=== PATIENT | female | born 1980 | race African-American/Black ===

== ENCOUNTER 2017-08-13 07:10 | Day surgery (SDC) | payer SELFPAY ==
[~2017-08-13] VITALS: Ht 152.4 cm; Wt 77.1 kg
[~2017-08-13 07:10] MED LIST: ADULT MULTIVI200 MCG PO; CLINDAMYCIN HC300 MG PO; FEROSUL325 MG PO; GLUCOPHAGE XR750 MG PO; TYLENOL SINUS1 EA16 PO; ULTRAM50 MG PO
[2017-08-13 08:00] VITALS: BP 125/76
[2017-08-13 15:13] VITALS: BP 114/76
[2017-08-13 19:00] VITALS: BP 112/66
[2017-08-13 22:40] VITALS: BP 115/66
[2017-08-14 03:37] VITALS: BP 117/57
[2017-08-14 06:58] LABS: BASOPHIL (%) 0 % (0-1); EOSINOPHIL (%) 0.2 % (0-5); IMMATURE GRANULOCYTE (%) 0.3 % (0.0-0.7); LYMPHOCYTE (%) 19.2 % (15-42); LYMPHOCYTE COUNT 1.3 K/uL (1.0-2.8); MCH 27.2 PG (29.0-34.0); MCHC 31.9 G/DL (30.0-36.0); MCV 85.4 FL (83-99); MONOCYTE (%) 10.5 % (3-12); MONOCYTE COUNT 0.7 K/uL (0-0.8); NEUTROPHIL (%) 69.8 % (45-76); NEUTROPHIL COUNT 4.6 K/uL (1.8-6.4); PLATELET COUNT 285 K/uL (156-360); RBC DIS.WIDTH-SD 43.2 % (39-53); WHITE BLOOD COUNT 6.7 K/uL (4.1-10.2)
[2017-08-14 07:04] LABS: HEMOGLOBIN 6.7 G/DL (11.9-15.5); RED BLOOD COUNT 2.46 M/uL (3.80-5.20)
[2017-08-14 07:13] LABS: CHLORIDE 106 MEQ/L (99-109); CREATININE 0.6 MG/DL (0.6-1.3); GFR ESTIMATE (CALCULATED) > 59 mL/min/; GLUCOSE 90 mg/dL (70-99); POTASSIUM 3.6 MEQ/L (3.7-5.4); SODIUM 142 MEQ/L (136-147); UREA NITROGEN (BUN) 4 mg/dL (9-23)
[2017-08-14 07:20] VITALS: BP 143/65
[2017-08-14] MEDS ORDERED: MOTRIN600 MG PO (08:22)
[2017-08-14] MEDS ORDERED: ENDOCET 5-3251 EACH PO (08:22)
== END 2017-08-14 10:24 | disposition home or self-care (01) ==
LOC: SDC 07:10 → 2SOUTH 10:39 → EDSTATUS 10:44 → 2SOUTH 10:44 → SDC 10:44 → 2SOUTH 11:52 → ENRESERV 11:54 → EDSTATUS 12:10 → 2SOUTH 12:11 → ENRESERV 13:33 → SDC 14:32 → ENRESERV 14:47 → 2EAST 15:10 → SDC 15:21 → 2EAST 08-14 10:24
PROVIDERS: Obstetrics & Gynecology
DX: N93.9 Abnormal uterine and vaginal bleeding, unspecified (principal); D62 Acute posthemorrhagic anemia; N94.6 Dysmenorrhea, unspecified; E11.9 Type 2 diabetes mellitus without complications; D50.9 Iron deficiency anemia, unspecified; Z86.14 Personal history of Methicillin resistant Staphylococcus aureus infection; E66.9 Obesity, unspecified; Z68.32 Body mass index [BMI] 32.0-32.9, adult; Z79.84 Long term (current) use of oral hypoglycemic drugs; Z88.8 Allergy status to other drugs, medicaments and biological substances; Z91.09 Other allergy status, other than to drugs and biological substances
CPT/HCPCS: 80048; 82948; 85025; 87641; 88307; 93005; G0378; J0690; J1100; J1170; J1815; J1885; J2250; J2405; J3010; J7120

== ENCOUNTER 2017-08-26 19:40 | Inpatient (IN) | payer OTHER ==
[~2017-08-26] VITALS: Ht 160 cm; Wt 82.6 kg
[~2017-08-26 19:40] MED LIST changes: +ENDOCET 5-3251 EACH PO; +MOTRIN600 MG PO
[2017-08-26] MEDS ORDERED: FERROUS SULFAT325 MG PO (20:22)
[2017-08-26] MEDS ORDERED: MOTRIN400 MG PO (20:23)
[2017-08-26 20:59] LABS: MCH 27.1 PG (29.0-34.0); MCHC 31.4 G/DL (30.0-36.0); MCV 86.2 FL (83-99); RBC DIS.WIDTH-CV 14.4 % (11.8-14.6); RBC DIS.WIDTH-SD 45.4 % (39-53); WHITE BLOOD COUNT 6.2 K/uL (4.1-10.2)
[2017-08-26 21:04] LABS: ALBUMIN 3.9 g/dL (3.2-4.8); CHLORIDE 104 mEq/L (99-109); POTASSIUM 3.6 mEq/L (3.7-5.4); SODIUM 136 mEq/L (136-147)
[2017-08-26 21:06] LABS: GLUCOSE 208 mg/dL (70-99); TOTAL PROTEIN 7.6 g/dL (6.4-8.3)
[2017-08-26 21:08] LABS: TOTAL BILIRUBIN 2.1 mg/dL (0.0-1.0)
[2017-08-26 21:10] LABS: ALKALINE PHOSPHATASE 67 IU/L (3-129); CREATININE 1.4 mg/dL (0.6-1.3); GFR ESTIMATE (CALCULATED) 54 mL/min/
[2017-08-26 21:11] LABS: AST (GOT) 11 IU/L (2-34); UREA NITROGEN (BUN) 10 mg/dL (9-23)
[2017-08-26 21:13] LABS: ALT (GPT) 8 IU/L (3-49); LIPASE 8 U/L (1.0-51.0)
[2017-08-26 21:41] LABS: HEMOGLOBIN 8.8 G/DL (11.9-15.5); RED BLOOD COUNT 3.25 M/uL (3.80-5.20)
[2017-08-26 21:42] LABS: PLATELET COUNT 440 K/uL (156-360)
[2017-08-26 22:09] LABS: ABS NEUTROPHIL COUNT 5.7; ANISOCYTOSIS 1+; BAND NEUTROPHILS 28.7 % (0-8.0); EOSINOPHIL ABS CT 0; LYMPHOCYTES 2.6 % (15.0-45.0); MACROCYTES 1+; METAMYELOCYTES 2.6 %; MICROCYTOSIS 1+; MONOCYTES 1.7 % (0-9.0); MYELOCYTES 0.9 %; PLAT.SUFFICIENCY INCREASED; PLATELET CLUMPS PRESENT - PLATELET COUNT APPEARS INCREASED; POLYCHROMASIA 1+; SEG.NEUTROPHILS 63.5 % (46.0-76.0)
[2017-08-27] VITALS (10 sets, daily range): BP systolic 97–115; BP diastolic 69–78
[2017-08-27 00:16] LABS: APPEARANCE SL.HAZY ((CLEAR)); BILIRUBIN NEGATIVE; BLOOD SMALL; COLOR YELLOW ((YELLOW)); GLUCOSE (STRIP) NEGATIVE; KETONES NEGATIVE; LEUKOCYTES TRACE; NITRITE NEGATIVE; PROTEIN (STRIP) 30; UROBILINOGEN 0.2 MG/DL (0.2-1.0)
[2017-08-27 00:17] LABS: HEMATOCRIT 23.4 % (36.0-46.0); HEMOGLOBIN 7.2 G/DL (11.9-15.5); MCH 26.8 PG (29.0-34.0); MCHC 30.8 G/DL (30.0-36.0); PLATELET COUNT 347 K/uL (156-360); RBC DIS.WIDTH-CV 14.6 % (11.8-14.6); RED BLOOD COUNT 2.69 M/uL (3.80-5.20); WHITE BLOOD COUNT 4.7 K/uL (4.1-10.2)
[2017-08-27 00:21] LABS: BACTERIA RARE /HPF; EPITHELIAL CELLS 1+ /HPF; MUCUS NONE SEEN /LPF; UCUL ADDED? YES; WHITE BLOOD CELLS 15-20 /HPF (0-5)
[2017-08-27 00:24] LABS: ALBUMIN 3.2 g/dL (3.2-4.8); CHLORIDE 107 mEq/L (99-109); POTASSIUM 3.4 mEq/L (3.7-5.4); SODIUM 137 mEq/L (136-147)
[2017-08-27 00:27] LABS: GLUCOSE 218 mg/dL (70-99)
[2017-08-27 00:29] LABS: TOTAL BILIRUBIN 1.8 mg/dL (0.0-1.0)
[2017-08-27 00:30] LABS: ALKALINE PHOSPHATASE 49 IU/L (3-129); CREATININE 1.1 mg/dL (0.6-1.3); GFR ESTIMATE (CALCULATED) > 59 mL/min/; TOTAL PROTEIN 5.4 g/dL (6.4-8.3)
[2017-08-27 00:31] LABS: UREA NITROGEN (BUN) 10 mg/dL (9-23)
[2017-08-27 00:32] LABS: AST (GOT) 11 IU/L (2-34)
[2017-08-27 00:33] LABS: ALT (GPT) 6 IU/L (3-49)
[2017-08-27 01:35] LABS: ABS NEUTROPHIL COUNT 3.9; ANISOCYTOSIS 1+; BAND NEUTROPHILS 14.9 % (0-8.0); BURR CELLS 1+; EOSINOPHIL ABS CT 0; HELMET CELLS 1+; HEMATOLOGY COMMENT 1 SN; HYPOCHROMASIA 3+; LYMPHOCYTES 9.6 % (15.0-45.0); METAMYELOCYTES 4.4 %; MICROCYTOSIS 1+; MONOCYTES 1.8 % (0-9.0); MYELOCYTES 0.9 %; PLAT.SUFFICIENCY ADEQUATE; POIKILOCYTOSIS 1+; POLYCHROMASIA 1+; SEG.NEUTROPHILS 68.4 % (46.0-76.0); TEAR DROP CELLS 1+
[2017-08-27 10:20] LABS: HEMOGLOBIN 7.4 G/DL (11.9-15.5); MCH 27.1 PG (29.0-34.0); MCHC 30.8 G/DL (30.0-36.0); MCV 87.9 FL (83-99); PLATELET COUNT 344 K/uL (156-360); RBC DIS.WIDTH-CV 14.8 % (11.8-14.6); RBC DIS.WIDTH-SD 47.8 % (39-53); RED BLOOD COUNT 2.73 M/uL (3.80-5.20)
[2017-08-27 10:36] LABS: ABS NEUTROPHIL COUNT 7.8; EOSINOPHIL ABS CT 0; HYPOCHROMASIA 2+; LYMPHOCYTES 2.6 % (15.0-45.0); OVALOCYTES 1+; PLAT.SUFFICIENCY ADEQUATE; POIKILOCYTOSIS 1+; POLYCHROMASIA 1+; SEG.NEUTROPHILS 49.6 % (46.0-76.0)
[2017-08-27 10:39] LABS: ALBUMIN 3.2 G/DL (3.2-4.8); ALKALINE PHOSPHATASE 40 IU/L (3-129); ALT (GPT) 7 IU/L (3-49); AST (GOT) 11 IU/L (2-34); CHLORIDE 113 MEQ/L (99-109); CREATININE 0.7 MG/DL (0.6-1.3); GFR ESTIMATE (CALCULATED) > 59 mL/min/; GLUCOSE 192 mg/dL (70-99); POTASSIUM 3.9 MEQ/L (3.7-5.4); SODIUM 141 MEQ/L (136-147); TOTAL BILIRUBIN 1.2 MG/DL (0.0-1.0); TOTAL PROTEIN 6.2 G/DL (6.4-8.3); UREA NITROGEN (BUN) 8 mg/dL (9-23)
[2017-08-27 10:41] LABS: BAND NEUTROPHILS 47.8 % (0-8.0)
[2017-08-28] VITALS (19 sets, daily range): BP systolic 100–140; BP diastolic 58–104
[2017-08-28 06:03] LABS: HEMATOCRIT 22.1 % (36.0-46.0); HEMOGLOBIN 6.7 G/DL (11.9-15.5); MCH 26.6 PG (29.0-34.0); MCHC 30.3 G/DL (30.0-36.0); MCV 87.7 FL (83-99); PLATELET COUNT 348 K/uL (156-360); RBC DIS.WIDTH-CV 15.6 % (11.8-14.6); RBC DIS.WIDTH-SD 50.7 % (39-53); RED BLOOD COUNT 2.52 M/uL (3.80-5.20); WHITE BLOOD COUNT 10.9 K/uL (4.1-10.2)
[2017-08-28 09:26] LABS: CHLORIDE 109 MEQ/L (99-109); CREATININE 0.7 MG/DL (0.6-1.3); GFR ESTIMATE (CALCULATED) > 59 mL/min/; GLUCOSE 132 mg/dL (70-99); SODIUM 138 MEQ/L (136-147); UREA NITROGEN (BUN) 6 mg/dL (9-23)
[2017-08-28 09:27] LABS: POTASSIUM 3.1 MEQ/L (3.7-5.4)
[2017-08-28 09:35] LABS: THYROTROPIN (TSH) 2.8 MIU/L (0.4-5.5)
[2017-08-28 18:01] LABS: CHLORIDE 106 MEQ/L (99-109); GFR ESTIMATE (CALCULATED) 43 mL/min/; GLUCOSE 140 mg/dL (70-99); POTASSIUM 3.3 MEQ/L (3.7-5.4); SODIUM 136 MEQ/L (136-147); UREA NITROGEN (BUN) 11 mg/dL (9-23)
[2017-08-28 18:05] LABS: CREATININE 1.7 MG/DL (0.6-1.3)
[2017-08-28 18:21] LABS: HEMATOCRIT 28.3 % (36.0-46.0); MCH 26.9 PG (29.0-34.0); MCHC 31.4 G/DL (30.0-36.0); MCV 85.5 FL (83-99); PLATELET COUNT 361 K/uL (156-360); RBC DIS.WIDTH-CV 15.4 % (11.8-14.6); RBC DIS.WIDTH-SD 47.8 % (39-53); WHITE BLOOD COUNT 15.5 K/uL (4.1-10.2)
[2017-08-28 18:51] LABS: HEMOGLOBIN 8.9 G/DL (11.9-15.5); RED BLOOD COUNT 3.31 M/uL (3.80-5.20)
[2017-08-29] VITALS (16 sets, daily range): BP systolic 0–138; BP diastolic 0–98
[2017-08-29 05:40] LABS: HEMATOCRIT 25.1 % (36.0-46.0); HEMOGLOBIN 7.9 G/DL (11.9-15.5); MCHC 31.5 G/DL (30.0-36.0); MCV 85.7 FL (83-99); PLATELET COUNT 336 K/uL (156-360); RBC DIS.WIDTH-CV 15.9 % (11.8-14.6); RBC DIS.WIDTH-SD 49.5 % (39-53); RED BLOOD COUNT 2.93 M/uL (3.80-5.20); WHITE BLOOD COUNT 14.8 K/uL (4.1-10.2)
[2017-08-29 06:10] LABS: CHLORIDE 114 MEQ/L (99-109); GFR ESTIMATE (CALCULATED) 36 mL/min/; GLUCOSE 150 mg/dL (70-99); SODIUM 141 MEQ/L (136-147); UREA NITROGEN (BUN) 14 mg/dL (9-23)
[2017-08-29 06:13] LABS: POTASSIUM 4.8 MEQ/L (3.7-5.4)
[2017-08-29 06:32] LABS: BASOPHIL (%) 0.1 % (0-1); EOSINOPHIL (%) 0 % (0-5); IMMATURE GRANULOCYTE (%) 0.8 % (0.0-0.7); LYMPHOCYTE (%) 3.9 % (15-42); LYMPHOCYTE COUNT 0.6 K/uL (1.0-2.8); MONOCYTE (%) 2.2 % (3-12); MONOCYTE COUNT 0.3 K/uL (0-0.8); NEUTROPHIL COUNT 13.7 K/uL (1.8-6.4)
[2017-08-29 15:18] LABS: HEMATOCRIT 28.2 % (36.0-46.0); HEMOGLOBIN 9.1 G/DL (11.9-15.5); MCH 27.4 PG (29.0-34.0); MCHC 32.3 G/DL (30.0-36.0); MCV 84.9 FL (83-99); PLATELET COUNT 313 K/uL (156-360); RBC DIS.WIDTH-CV 15.6 % (11.8-14.6); RBC DIS.WIDTH-SD 48.4 % (39-53); RED BLOOD COUNT 3.32 M/uL (3.80-5.20); WHITE BLOOD COUNT 16.9 K/uL (4.1-10.2)
[2017-08-29 15:39] LABS: ALKALINE PHOSPHATASE 56 IU/L (3-129); ALT (GPT) 7 IU/L (3-49); CHLORIDE 111 MEQ/L (99-109); CREATININE 2.2 MG/DL (0.6-1.3); GFR ESTIMATE (CALCULATED) 32 mL/min/; GLUCOSE 171 mg/dL (70-99); POTASSIUM 4.6 MEQ/L (3.7-5.4); SODIUM 139 MEQ/L (136-147); TOTAL PROTEIN 6.3 G/DL (6.4-8.3); UREA NITROGEN (BUN) 15 mg/dL (9-23)
[2017-08-29 15:40] LABS: AST (GOT) 16 IU/L (2-34)
[2017-08-29 15:50] LABS: ANISOCYTOSIS 1+; BASOPHIL (%) 0.3 % (0-1); BASOPHIL COUNT 0.1 K/uL (0-0.1); EOSINOPHIL (%) 0.1 % (0-5); IMMATURE GRANULOCYTE (%) 0.7 % (0.0-0.7); LYMPHOCYTE (%) 2.8 % (15-42); LYMPHOCYTE COUNT 0.5 K/uL (1.0-2.8); MACROCYTES 1+; MICROCYTOSIS 1+; MONOCYTE (%) 2.4 % (3-12); MONOCYTE COUNT 0.4 K/uL (0-0.8); NEUTROPHIL (%) 93.7 % (45-76); NEUTROPHIL COUNT 15.8 K/uL (1.8-6.4)
[2017-08-30] VITALS (7 sets, daily range): BP systolic 108–137; BP diastolic 78–100
[2017-08-30 05:17] LABS: BASOPHIL (%) 0.1 % (0-1); EOSINOPHIL (%) 0.1 % (0-5); HEMATOCRIT 26.2 % (36.0-46.0); HEMOGLOBIN 8.5 G/DL (11.9-15.5); LYMPHOCYTE COUNT 0.5 K/uL (1.0-2.8); MCH 27.6 PG (29.0-34.0); MCHC 32.4 G/DL (30.0-36.0); MCV 85.1 FL (83-99); MONOCYTE (%) 3.4 % (3-12); MONOCYTE COUNT 0.6 K/uL (0-0.8); NEUTROPHIL (%) 92.4 % (45-76); NEUTROPHIL COUNT 14.9 K/uL (1.8-6.4); PLATELET COUNT 302 K/uL (156-360); RBC DIS.WIDTH-SD 49.4 % (39-53); RED BLOOD COUNT 3.08 M/uL (3.80-5.20); WHITE BLOOD COUNT 16.2 K/uL (4.1-10.2)
[2017-08-30 05:47] LABS: ALBUMIN 2.6 G/DL (3.2-4.8); ALKALINE PHOSPHATASE 57 IU/L (3-129); ALT (GPT) 6 IU/L (3-49); AST (GOT) 13 IU/L (2-34); CHLORIDE 110 MEQ/L (99-109); CREATININE 2.3 MG/DL (0.6-1.3); GFR ESTIMATE (CALCULATED) 30 mL/min/; GLUCOSE 131 mg/dL (70-99); POTASSIUM 4.4 MEQ/L (3.7-5.4); SODIUM 138 MEQ/L (136-147); UREA NITROGEN (BUN) 17 mg/dL (9-23)
[2017-08-30 05:49] LABS: TOTAL BILIRUBIN 1.4 MG/DL (0.0-1.0)
[2017-08-30 05:50] LABS: TOTAL PROTEIN 5.2 G/DL (6.4-8.3)
[2017-08-30 13:06] LABS: BASOPHIL (%) 0.2 % (0-1); EOSINOPHIL (%) 0.1 % (0-5); HEMATOCRIT 26.8 % (36.0-46.0); HEMOGLOBIN 8.7 G/DL (11.9-15.5); IMMATURE GRANULOCYTE (%) 1.1 % (0.0-0.7); LYMPHOCYTE (%) 3.4 % (15-42); LYMPHOCYTE COUNT 0.6 K/uL (1.0-2.8); MCH 27.8 PG (29.0-34.0); MCHC 32.5 G/DL (30.0-36.0); MCV 85.6 FL (83-99); MONOCYTE (%) 3.8 % (3-12); MONOCYTE COUNT 0.6 K/uL (0-0.8); NEUTROPHIL (%) 91.4 % (45-76); NEUTROPHIL COUNT 15.2 K/uL (1.8-6.4); PLATELET COUNT 322 K/uL (156-360); RBC DIS.WIDTH-CV 16.2 % (11.8-14.6); RBC DIS.WIDTH-SD 50.1 % (39-53); RED BLOOD COUNT 3.13 M/uL (3.80-5.20); WHITE BLOOD COUNT 16.7 K/uL (4.1-10.2)
[2017-08-30 13:42] LABS: ALBUMIN 2.5 G/DL (3.2-4.8); ALKALINE PHOSPHATASE 50 IU/L (3-129); ALT (GPT) 7 IU/L (3-49); AST (GOT) 12 IU/L (2-34); CHLORIDE 109 MEQ/L (99-109); CREATININE 2.2 MG/DL (0.6-1.3); GFR ESTIMATE (CALCULATED) 32 mL/min/; GLUCOSE 164 mg/dL (70-99); POTASSIUM 4.4 MEQ/L (3.7-5.4); SODIUM 139 MEQ/L (136-147); TOTAL BILIRUBIN 1.3 MG/DL (0.0-1.0); TOTAL PROTEIN 5.2 G/DL (6.4-8.3); UREA NITROGEN (BUN) 18 mg/dL (9-23)
[2017-08-31 00:31] VITALS: BP 126/78
[2017-08-31 04:32] VITALS: BP 120/68
[2017-08-31 06:26] LABS: HEMATOCRIT 24.5 % (36.0-46.0); HEMOGLOBIN 7.9 G/DL (11.9-15.5); MCH 27.4 PG (29.0-34.0); MCHC 32.2 G/DL (30.0-36.0); MCV 85.1 FL (83-99); PLATELET COUNT 319 K/uL (156-360); RBC DIS.WIDTH-CV 15.9 % (11.8-14.6); RBC DIS.WIDTH-SD 49.2 % (39-53); RED BLOOD COUNT 2.88 M/uL (3.80-5.20); WHITE BLOOD COUNT 14.5 K/uL (4.1-10.2)
[2017-08-31 06:31] LABS: CHLORIDE 109 MEQ/L (99-109); CREATININE 2.1 MG/DL (0.6-1.3); GFR ESTIMATE (CALCULATED) 34 mL/min/; GLUCOSE 155 mg/dL (70-99); MAGNESIUM 1.9 mg/dl (1.3-2.7); PHOSPHORUS 2.5 mg/dL (2.5-4.9); POTASSIUM 4.3 MEQ/L (3.7-5.4); SODIUM 141 MEQ/L (136-147); UREA NITROGEN (BUN) 19 mg/dL (9-23)
[2017-08-31 07:19] LABS: BASOPHIL (%) 0.1 % (0-1); EOSINOPHIL (%) 0.2 % (0-5); IMMATURE GRANULOCYTE (%) 1.7 % (0.0-0.7); LYMPHOCYTE (%) 4.6 % (15-42); LYMPHOCYTE COUNT 0.7 K/uL (1.0-2.8); MONOCYTE COUNT 0.7 K/uL (0-0.8); NEUTROPHIL (%) 88.4 % (45-76); NEUTROPHIL COUNT 12.8 K/uL (1.8-6.4)
[2017-08-31 07:57] VITALS: BP 140/81
[2017-08-31 11:57] VITALS: BP 150/86
[2017-08-31 16:16] VITALS: BP 149/85
[2017-09-01 01:03] VITALS: BP 142/80
[2017-09-01 06:41] LABS: HEMATOCRIT 29.9 % (36.0-46.0); HEMOGLOBIN 9.6 G/DL (11.9-15.5); MCH 27.2 PG (29.0-34.0); MCHC 32.1 G/DL (30.0-36.0); MCV 84.7 FL (83-99); RBC DIS.WIDTH-SD 49.6 % (39-53); WHITE BLOOD COUNT 14.2 K/uL (4.1-10.2)
[2017-09-01 06:49] LABS: PLATELET COUNT 432 K/uL (156-360); RED BLOOD COUNT 3.53 M/uL (3.80-5.20)
[2017-09-01 07:11] LABS: ALBUMIN 3.7 G/DL (3.2-4.8); ALKALINE PHOSPHATASE 55 IU/L (3-129); ALT (GPT) 10 IU/L (3-49); AST (GOT) 16 IU/L (2-34); CHLORIDE 106 MEQ/L (99-109); CREATININE 1.8 MG/DL (0.6-1.3); GFR ESTIMATE (CALCULATED) 40 mL/min/; GLUCOSE 184 mg/dL (70-99); MAGNESIUM 2.1 mg/dl (1.3-2.7); PHOSPHORUS 2.7 mg/dL (2.5-4.9); SODIUM 141 MEQ/L (136-147); UREA NITROGEN (BUN) 18 mg/dL (9-23)
[2017-09-01 07:12] LABS: TOTAL BILIRUBIN 0.7 MG/DL (0.0-1.0); TOTAL PROTEIN 6.3 G/DL (6.4-8.3)
[2017-09-01 07:18] LABS: BASOPHIL (%) 0.1 % (0-1); EOSINOPHIL (%) 0.6 % (0-5); EOSINOPHIL COUNT 0.1 K/uL (0-0.3); IMMATURE GRANULOCYTE (%) 1.6 % (0.0-0.7); LYMPHOCYTE (%) 5.5 % (15-42); LYMPHOCYTE COUNT 0.8 K/uL (1.0-2.8); MONOCYTE (%) 4.9 % (3-12); MONOCYTE COUNT 0.7 K/uL (0-0.8); NEUTROPHIL (%) 87.3 % (45-76); NEUTROPHIL COUNT 12.4 K/uL (1.8-6.4)
[2017-09-01 08:00] VITALS: BP 153/101
[2017-09-01 09:55] LABS: TREPONEMA ANTIBODY NEGATIVE (NEGATIVE)
[2017-09-01 10:22] LABS: HEPATITIS B SURFACE ANTIGEN Nonreactive
[2017-09-01 10:23] LABS: HEPATITIS C ANTIBODY Nonreactive; HIV-1/2 AB/AG COMBO Nonreactive
[2017-09-01 16:00] VITALS: BP 123/85
[2017-09-01 23:53] VITALS: BP 141/50
[2017-09-02 06:31] LABS: HEMATOCRIT 26.8 % (36.0-46.0); HEMOGLOBIN 8.5 G/DL (11.9-15.5); MCH 27.1 PG (29.0-34.0); MCHC 31.7 G/DL (30.0-36.0); MCV 85.4 FL (83-99); PLATELET COUNT 426 K/uL (156-360); RBC DIS.WIDTH-SD 49.3 % (39-53); RED BLOOD COUNT 3.14 M/uL (3.80-5.20); WHITE BLOOD COUNT 11.4 K/uL (4.1-10.2)
[2017-09-02 06:54] LABS: CHLORIDE 107 MEQ/L (99-109); CREATININE 1.5 MG/DL (0.6-1.3); GFR ESTIMATE (CALCULATED) 50 mL/min/; GLUCOSE 126 mg/dL (70-99); SODIUM 142 MEQ/L (136-147); UREA NITROGEN (BUN) 14 mg/dL (9-23)
[2017-09-02 07:12] LABS: BASOPHIL (%) 0.1 % (0-1); EOSINOPHIL (%) 1.1 % (0-5); EOSINOPHIL COUNT 0.1 K/uL (0-0.3); LYMPHOCYTE (%) 5.8 % (15-42); LYMPHOCYTE COUNT 0.7 K/uL (1.0-2.8); MONOCYTE (%) 5.7 % (3-12); MONOCYTE COUNT 0.7 K/uL (0-0.8); NEUTROPHIL (%) 85.3 % (45-76); NEUTROPHIL COUNT 9.8 K/uL (1.8-6.4)
[2017-09-02 07:29] VITALS: BP 134/90
[2017-09-02 14:27] VITALS: BP 148/94
[2017-09-03 01:09] VITALS: BP 145/82
[2017-09-03 08:07] VITALS: BP 140/80
[2017-09-03 10:10] LABS: BASOPHIL (%) 0.1 % (0-1); EOSINOPHIL (%) 1.3 % (0-5); EOSINOPHIL COUNT 0.1 K/uL (0-0.3); HEMATOCRIT 27.3 % (36.0-46.0); HEMOGLOBIN 8.6 G/DL (11.9-15.5); IMMATURE GRANULOCYTE (%) 1.7 % (0.0-0.7); LYMPHOCYTE (%) 6.7 % (15-42); LYMPHOCYTE COUNT 0.7 K/uL (1.0-2.8); MCH 27.5 PG (29.0-34.0); MCHC 31.5 G/DL (30.0-36.0); MCV 87.2 FL (83-99); MONOCYTE (%) 5.3 % (3-12); MONOCYTE COUNT 0.5 K/uL (0-0.8); NEUTROPHIL (%) 84.9 % (45-76); NEUTROPHIL COUNT 8.2 K/uL (1.8-6.4); PLATELET COUNT 501 K/uL (156-360); RBC DIS.WIDTH-CV 16.4 % (11.8-14.6); RBC DIS.WIDTH-SD 51.3 % (39-53); RED BLOOD COUNT 3.13 M/uL (3.80-5.20); WHITE BLOOD COUNT 9.7 K/uL (4.1-10.2)
[2017-09-03 10:38] LABS: ALBUMIN 3.3 G/DL (3.2-4.8); ALKALINE PHOSPHATASE 46 IU/L (3-129); ALT (GPT) 15 IU/L (3-49); AST (GOT) 17 IU/L (2-34); CHLORIDE 104 MEQ/L (99-109); CREATININE 1.4 MG/DL (0.6-1.3); GFR ESTIMATE (CALCULATED) 54 mL/min/; POTASSIUM 3.9 MEQ/L (3.7-5.4); SODIUM 141 MEQ/L (136-147); TOTAL PROTEIN 6.2 G/DL (6.4-8.3); UREA NITROGEN (BUN) 13 mg/dL (9-23)
[2017-09-03 10:39] LABS: GLUCOSE 195 mg/dL (70-99); TOTAL BILIRUBIN 0.5 MG/DL (0.0-1.0)
[2017-09-03 16:00] VITALS: BP 154/100
[2017-09-03] MEDS ORDERED: GLIPIZIDE5 MG PO (16:01)
[2017-09-03] MEDS ORDERED: ENDOCET 5-3251 EACH PO (16:01)
[2017-09-03] MEDS ORDERED: DOCUSATE SODIU100 MG PO (16:01)
[2017-09-03] MEDS ORDERED: AUGMENTIN500 MG PO (16:01)
== END 2017-09-03 18:52 | disposition home or self-care (01) | DRG 862 ==
LOC: EME 19:40 → EDOF 22:43 → ENRESERV 22:45 → CANRESERV 23:02 → EDOF 23:42 → 4WEST 23:42 → EDOF 23:42 → CANRESERV 23:43 → ENRESERV 23:43 → 4WEST 08-27 07:54 → ENRESERV 08-30 14:04 → 2EAST 08-30 18:30
PROVIDERS: Emergency Medicine; Hospitalist; Internal Medicine; Internal Medicine Nephrology; Obstetrics & Gynecology; Obstetrics & Gynecology Obstetrics
PROC: 0W9J30Z Drainage of Pelvic Cavity with Drainage Device, Percutaneous Approach (ICD-10-PCS; principal; 2017-08-28)
PROC: 30233N1 Transfusion of Nonautologous Red Blood Cells into Peripheral Vein, Percutaneous Approach (ICD-10-PCS; 2017-08-29)
PROC: 0W9J3ZZ Drainage of Pelvic Cavity, Percutaneous Approach (ICD-10-PCS; 2017-09-02)
DX: T81.4XXA Infection following a procedure, initial encounter (principal); A41.9 Sepsis, unspecified organism; R65.20 Severe sepsis without septic shock; N73.0 Acute parametritis and pelvic cellulitis; Y83.6 Removal of other organ (partial) (total) as the cause of abnormal reaction of the patient, or of later complication, without mention of misadventure at the time of the procedure; D62 Acute posthemorrhagic anemia; N17.0 Acute kidney failure with tubular necrosis; I95.9 Hypotension, unspecified; K56.7 Ileus, unspecified; K59.00 Constipation, unspecified; R17 Unspecified jaundice; R18.8 Other ascites; E83.51 Hypocalcemia; E87.2 Acidosis; E87.6 Hypokalemia; E88.09 Other disorders of plasma-protein metabolism, not elsewhere classified; I10 Essential (primary) hypertension; E11.9 Type 2 diabetes mellitus without complications; M25.559 Pain in unspecified hip; M54.9 Dorsalgia, unspecified; E66.9 Obesity, unspecified; Z83.3 Family history of diabetes mellitus; Z22.322 Carrier or suspected carrier of Methicillin resistant Staphylococcus aureus; Z90.710 Acquired absence of both cervix and uterus
CPT/HCPCS: 49406; 74177; 76770; 80048; 80048 91; 80053; 80076; 80202; 81003; 82948; 83605; 83690; 83735; 84100; 84443; 85025; 85025 91; 85027; 86780; 86803; 86850; 86900; 86901; 86920; 87040; 87070; 87075; 87076; 87077; 87086; 87185; 87186; 87205; 87340; 87389; 87502; 87641; 89190; 94799; 99281; 99284; J0295; J1815; J2270; J2405; J2543; J2765; J3010; J3370; J3480; J7030; J7040; J7050; J7120; P9016; P9047